=== PATIENT | female | born 1955 | race Two or more races ===

== ENCOUNTER 2016-08-31 09:16 | Emergency (ER) | END 2016-08-31 11:55 | disposition home or self-care (01) | DX: S52.102A Unspecified fracture of upper end of left radius, initial encounter for closed fracture (principal); R40.2252 Coma scale, best verbal response, oriented, at arrival to emergency department; F17.210 Nicotine dependence, cigarettes, uncomplicated; R40.2142 Coma scale, eyes open, spontaneous, at arrival to emergency department; R40.2362 Coma scale, best motor response, obeys commands, at arrival to emergency department; W18.09XA Striking against other object with subsequent fall, initial encounter; Y92.9 Unspecified place or not applicable | CPT/HCPCS: 29105; 73090; 82962; 93005; Z7502; Z7610 ==